=== PATIENT | male | born 1970 | race Caucasian/White ===

== ENCOUNTER 2019-07-11 07:42 | Inpatient (IN) ==
[2019-07-11 08:52] LABS: BASO# 0.01 X1000 (0.0-0.2); BASO% 0.1 % (0.0-0.8); EOS# 0.01 X1000 (0.0-0.7); EOS% 0.1 % (0.0-10.0); HEMATOCRIT 43.4 % (42.0-52.0); HEMOGLOBIN 13.9 g/dL (14.0-18.0); IMM GRAN# 0.02 X1000 (0.0-0.04); IMM GRAN% 0.3 % (0.0-0.5); LYMPH# 0.42 X1000 (1.2-3.4); LYMPH% 6.2 % (20.5-51.1); MCH 30.7 PG (27-31); MCV 95.8 FL (81-99); MONO# 0.67 X1000 (0.11-0.59); MONO% 9.9 % (1.7-9.3); MPV 10.4 FL (7.4-10.4); NEUT# 5.61 X1000 (1.4-6.5); NEUT% 83.4 % (42.2-75.2); PLT 303 X1000 (130-400); RBC 4.53 XMIL (4.7-6.1); RDW 12.4 % (11.5-14.5); WBC 6.74 X1000 (4.8-10.8)
--- NOTE | 2019-07-11 08:52 | Diag Imaging Result Doc PS360 ---
CHEST-1 VIEW - 07/11/2019 INDICATION: sepsis prot COMPARISON: 07/21/2017 FINDINGS: Lung volumes are low. The lungs are clear. Heart size is normal. No pneumothorax or pleural effusion. IMPRESSION: Negative exam. Electronically signed by Vazquez Juan 07/11/2019 8:50 AM
[2019-07-11] MEDS ORDERED: LEVAQUIN 750 MG/D5W 750 MG/150 ML IVPB IV ONE (08:53)
[2019-07-11 09:06] LABS: INR 1.46
[2019-07-11 09:07] LABS: PTT 38.7 Seconds (22.3-41.8)
[2019-07-11 09:10] LABS: AGAP 11; ALB/GLOB RATIO 1.5; ALKALINE PHOSPHATASE 97 U/L (32-122); BUN 14 mg/dL (8-22); CALCIUM 8.2 mg/dL (8.8-10.2); CHLORIDE 103 mmol/L (98-107); CK PROFILE 48 U/L (24-204); COSMO 279; CREATININE 0.8 mg/dL (0.7-1.2); ESTIMATED GFR > 60; GLUCOSE 143 mg/dL (70-104); GOT 33 U/L (10-34); GPT 36 U/L (10-44); POTASSIUM 3.9 mmol/L (3.5-5.1); SODIUM 138 mmol/L (136-145); TCO2 24 mmol/L (25-35); TOTAL BILIRUBIN 0.47 mg/dL (0.20-1.00); TOTAL PROTEIN 6.7 g/dL (6.3-8.3)
[2019-07-11] MEDS ORDERED: DUONEB (A & A) INH ONE (09:21)
[2019-07-11] MEDS ORDERED: TYLENOL PO ONE (09:50)
[2019-07-11] MEDS ORDERED: TAMIFLU PO ONE ×2 (10:17→10:47)
[2019-07-11] MEDS ORDERED: NS 1,000 ML IV ONE (10:41)
--- NOTE | 2019-07-11 12:10 | PROVIDER DOCUMENTATION ---
This chart was entered by Leonora West Scribe, acting as scribe for Booker Mcgee DO. HPI-Fever - General Chief Complaint: SEPSIS ALERT - D Stated Complaint: fever, ams Time Seen by Provider: 07/11/19 09:00 Source: patient, family (parents) Allergies/Adverse Reactions: Patient Allergies Allergy/AdvReac Type Severity Reaction Status Date / Time dalfampridine [From Ampyra] Allergy Seizures Verified 07/11/19 10:07 Home Medications: Home Medication List Medication Instructions Recorded Confirmed Last Taken Type Baclofen 20 mg PO DAILY 05/22/14 06/27/19 06/27/19 History Rivaroxaban [Xarelto] 1 tab PO DAILY 11/13/18 06/27/19 06/26/19 History Tamsulosin [Flomax] 0.4 mg PO DAILY 03/19/19 06/27/19 06/26/19 History - History of Present Illness-Fever Nature of Presenting Problem: 48yom presents to ED by EMS cc dizzy, fever, weakness, trouble standing, cough, headache and sore throat since this morning. Parents are at bedside and are pt caregivers and report pt has MS, low platelets, low white count and has weekly blood work at Dr. Black's office. Pt is on Xarelto 10mg qday. Pt is febrile, lethargic and unwell looking upon exam. Fever Severity/Quality: reports: greater than 102 F Onset/Duration: reports: this morning Timing: reports: still present Severity: reports: moderate Context: reports: decreased mental status, other (low platelets and low white count, MS) Recent Illness?: reports: none Cognitive Baseline: alert, oriented x3 Modifying Factors: improves with: nothing Associated Symptoms: reports: cough, dizziness, fatigue, fever/chills, headaches , sinus congestion/drainage, weakness Similar Symptoms Previously?: No Recently seen or treated by another doctor?: Yes (is seen weekly at Dr. Black's office for blood work) - Glascow Coma Score Best Eye Response ([place]): (4) open spontaneously Best Verbal Response ([place]): (5) oriented Best Motor Response ([place]): (6) obeys commands [place] Total: 15 Review of Systems - Adult - REVIEW OF SYSTEMS - ADULT Constitutional: reports: see HPI, chills, fever, fatique. denies: weight gain, weight loss Eyes: reports: no symptoms reported Ears, Nose, Mouth & Throat: reports: see HPI, sinus problem, throat pain. denies: ear pain Cardiovascular: reports: no symptoms reported Respiratory: reports: see HPI, cough. denies: shortness of breath, wheezing Gastrointestinal: reports: no symptoms reported Genitourinary: reports: no symptoms reported Musculoskeletal: reports: no symptoms reported Integumentary: reports: no symptoms reported Neurological: reports: see HPI, dizziness/vertigo, headache/migraines, loss of balance. denies: syncope Psychiatric: reports: no symptoms reported Endocrine: reports: no symptoms reported Hematologic/Lymphatic: reports: no symptoms reported Allergic/Immunologic: reports: no symptoms reported All Other Systems: Reviewed and Negative Past History - Adult - PAST MEDICAL HISTORY-ADULT Review of Records: reports: Nursing Assessment Review, Medications Reviewed, Social history reviewed & non-contributory. Major Childhood Illnesses: reports: denies history Cardiovascular: reports: denies history Respiratory: reports: denies history Gastrointestinal: reports: denies history Obstetrical/Gynecological: reports: denies history Genitourinary: reports: denies history Musculoskeletal: reports: denies history Neurological: reports: Multiple Sclerosis, Seizures/Epilepsy Endocrine/Immune: reports: anemia Other Conditions: reports: deaf/hard of hearing - PRIOR SURGERIES/PROCEDURES Surgical/Procedure History: reports: other (cochlear implant) - IMMUNIZATION STATUS Childhood Immunizations: See Nurse Assessment Flu Vaccine: See Nurse Assessment - FAMILY HISTORY Family History: reviewed, not pertinent - SOCIAL HISTORY Smoking: denies Physical Exam-General - PHYSICAL EXAM-ADULT Initial Vital Signs Reviewed: Yes - CONSTITUTIONAL General Appearance: alert, no apparent distress. negative: anxious, combative - EYES Eyes: PERRL/EOMI, pink conjunctivae. negative: photophobia - HEAD, EARS, NOSE, MOUTH & THROAT HENMT: normocephalic/atraumatic, moist mucous membranes, pharynx normal (uvula midline, no airway swelling), hearing deficit (pt has cochlear implant to right ear). negative: angioedema, tonsillar exudate - RESPIRATORY Respiratory: chest non-tender, no pleuratic chest pain, no respiratory distress, no accessory muscle use, rales (bilateral at bases with right greater than left), wheezing (expiratory at bases bilateral). negative: normal breath sounds (decreased), crackles, rhonchi, stridor - CARDIOVASCULAR Cardiovascular: normal peripheral pulses, regular rate, rhythm, no edema, no gallop, no JVD, tachycardia, systolic murmur (1-2/6 at the apex). negative: bradycardia - GASTROINTESTINAL (ABDOMEN) Abdominal Exam: normal bowel sounds, non tender, soft, no organomegaly, no pulsatile mass. negative: distended, guarding, rigid, rebound, tenderness - LYMPHATIC Lymphatic: no adenopathy. negative: enlargement, striations - MUSCULOSKELETAL Extremity: no calf tenderness, normal capillary refill, other (left lower leg is greater than right from a previous blood clot). negative: deformity - SKIN Integumentary: normal color, normal turgor, warm. negative: diaphoresis, jaundice, rash, swelling, tenderness - PSYCHIATRIC Psych/Mental Status: normal mood/affect, oriented x 3. negative: anxious, disheveled Progress - PLAN OF CARE/RESULTS Progress/Plan/Lab Results: Vital Signs - 8 hr 07/11/19 07:52 07/11/19 07:58 07/11/19 08:02 Temperature 104.5 F H Pulse Rate 135 H 134 H Respiratory Rate 25 H 12 27 H Blood Pressure 109/59 116/64 109/59 O2 Sat by Pulse Oximetry 89 L 89 L 89 L 07/11/19 08:38 07/11/19 09:02 07/11/19 09:32 Temperature Pulse Rate 131 H 132 H 132 H Respiratory Rate 19 19 21 Blood Pressure 106/61 96/55 102/49 O2 Sat by Pulse Oximetry 91 L 97 93 L 07/11/19 10:02 07/11/19 10:32 07/11/19 11:31 Temperature 101.9 F H Pulse Rate 127 H 137 H 136 H Respiratory Rate 19 19 22 Blood Pressure 96/63 94/61 O2 Sat by Pulse Oximetry 94 L 92 L 07/11/19 09:33 Influenza Screen - Final Nasopharyngeal 07/11/19 09:33 Group A Strep Rapid Antigen - Final Throat Laboratory Results - last 24 hr 07/11/19 07/11/19 07/11/19 08:37 08:37 08:37 WBC 6.74 RBC 4.53 L Hgb 13.9 L Hct 43.4 MCV 95.8 MCH 30.7 MCHC 32.0 L RDW Std Deviation 12.4 Plt Count 303 MPV 10.4 Immature Gran % (Auto) 0.3 Neut % (Auto) 83.4 H Lymph % (Auto) 6.2 L Glasscock % (Auto) 9.9 H Eos % (Auto) 0.1 Baso % (Auto) 0.1 Immature Gran # (Auto) 0.02 Neut # (Auto) 5.61 Lymph # (Auto) 0.42 L [place] # (Auto) 0.67 H Eos # (Auto) 0.01 Baso # (Auto) 0.01 PT 18.0 H INR 1.46 PTT (Actin FS) 38.7 Sodium 138 Potassium 3.9 Chloride 103 Carbon Dioxide 24 L Anion Gap 11 BUN 14 Creatinine 0.8 Estimated GFR/1.73 m2 > 60 BUN/Creatinine Ratio 18 Glucose 143 H Calculated Osmolality 279 Calcium 8.2 L Total Bilirubin 0.47 AST 33 ALT 36 Alkaline Phosphatase 97 Creatine Kinase 48 Troponin T High Sens Total Protein 6.7 Albumin 4.0 Globulin 2.7 Albumin/Globulin Ratio 1.5 Plasma Lactate 07/11/19 07/11/19 08:37 08:37 WBC RBC Hgb Hct MCV MCH MCHC RDW Std Deviation Plt Count MPV Immature Gran % (Auto) Neut % (Auto) Lymph % (Auto) Glasscock % (Auto) Eos % (Auto) Baso % (Auto) Immature Gran # (Auto) Neut # (Auto) Lymph # (Auto) Glasscock # (Auto) Eos # (Auto) Baso # (Auto) PT INR PTT (Actin FS) Sodium Potassium Chloride Carbon Dioxide Anion Gap BUN Creatinine Estimated GFR/1.73 m2 BUN/Creatinine Ratio Glucose Calculated Osmolality Calcium Total Bilirubin AST ALT Alkaline Phosphatase Creatine Kinase Troponin T High Sens 13 Total Protein Albumin Globulin Albumin/Globulin Ratio Plasma Lactate 1.1 Orders Category Date Time Status Cardiac Monitoring DIRECTED Care 07/11/19 08:04 Active IV Insertion ORDERED Care 07/11/19 08:04 Completed Notify MD of + Sepsis Screen NOW Care 07/11/19 08:04 Active Notify Physician As Ordered Care 07/11/19 08:04 Active CHEST-1 VIEW [RAD] Stat Exams 07/11/19 08:04 Completed BLOOD CULTURE [BLDCUL] Stat Lab 07/11/19 09:33 Results CBC WITH DIFF [HEME] Stat Lab 07/11/19 08:37 Completed CK PROFILE [SP CHEM] Stat Lab 07/11/19 08:37 Completed COMPREHENSIVE METABOLIC PANEL [CHEM] Stat Lab 07/11/19 08:37 Completed DIRECT STREP Stat Lab 07/11/19 09:33 Completed INFLUENZA SCREEN A/B Stat Lab 07/11/19 09:33 Completed LACTATE, PLASMA [CHEM] Lab 07/11/19 08:37 Completed LACTATE, PLASMA [CHEM] Lab 07/11/19 11:15 Uncollected LACTATE, PLASMA [CHEM] Lab 07/11/19 14:15 Uncollected PROTIME WITH INR [COAG] Stat Lab 07/11/19 08:37 Completed PTT [COAG] Stat Lab 07/11/19 08:37 Completed TROPONIN T HIGH SENSITIVITY Stat Lab 07/11/19 08:37 Completed URINALYSIS W/POSS RFLX CULT [URINALYSIS] Stat Lab 07/11/19 08:04 Uncollected 0.9% Sodium Chloride Inj [Ns] 1,000 ml Med 07/11/19 10:41 Discontinued IV 999 mls/hr Acetaminophen [Tylenol] Med 07/11/19 09:50 Discontinued 1,000 mg PO NOW ONE Albuterol 2.5MG/Ipratrop 0.5MG [Duoneb (A & A)] Med 07/11/19 09:21 Discontinued 3 ml INH NOW ONE Levofloxacin 750 mg/D5w [Levaquin 750 mg/D5w] Med 07/11/19 08:53 Discontinued 750 mg in 150 ml IV NOW Oseltamivir [Tamiflu] Med 07/11/19 10:17 Discontinued 75 mg PO NOW ONE Oseltamivir [Tamiflu] Med 07/11/19 10:47 Discontinued 75 mg PO NOW ONE Aerosol Treatments Routine Oth 07/11/19 09:21 Completed Aerosol Treatments Stat Oth 07/11/19 09:21 Completed Oxygen Device Stat Oth 07/11/19 08:04 Completed Transfer/Admit Order [TRANSFER] Routine Transfer 07/11/19 11:38 Ordered Result Diagrams: 07/11/19 08:37 07/11/19 08:37 - REASSESSMENT Reassessment #1 Status: improving (discussed labs/xrays with patient in depth discussed -case with dr black and PIPE STEM REPAIRER for Hospitalist group) - XRAY 1 XRAY: Bilateral XRAY Study: Chest Impression: See EMR Report (IMPRESSION: Negative exam. Electronically signed by Vazquez Juan 07/11/2019 8:50 AM) - CONSULTS/PCP/HOSPITALIST Notification #1 *Consult/PCP/Hospitalist*: Dr. Black paged @1120;returned @1125 Time Discussed: 11:25 Consult Disposition: other (admit to hospitalist) #2 Consult: Nicky/PIPE STEM REPAIRER paged@[phone];returned@ 1135 Time Discussed: 11:36 Consult Disposition: Admit (accepted pt to Dr. Betancourt) Departure - Departure Date of Disposition Decision: 07/11/19 Time of Disposition Decision: 11:26 DIAGNOSIS: Hypoxemia, Flu, Pneumonitis, Febrile neutropenia Disposition: ADMITTED INPATIENT 09 Certified Medical Emergency: Emergent Condition: Stable Referrals and Follow-Ups: None,PCP [Primary Care Provider] - - Critical Care Note This patient required my direct & personal management of CC.: Yes Total Time (mins): 60 Critical Care Statement: This patient required my direct personal management to treat or rule out processes, the absence of which, could potentiallly result in sudden, clinically significant life or limb threatening deterioration. Attestation - Physician/ DAY[place] Attestation Patient care was provided by Advanced Practice Provider:: No The physician spent face to face time with patient:: Yes Advanced Practice Provider documentation review:: Supervising physician onsite and consulted in the evaluation and care of this patient. The physician did have a face to face encounter with the patient. This chart was documented by the indicated scribe, (Leonora West Scribe) and accurately reflects the services I performed and decisions made by me, Booker Mcgee DO, as attested by the provider's signature.
[2019-07-11] MEDS ORDERED: ZOFRAN PO PRN (12:28)
[2019-07-11] MEDS ORDERED: TYLENOL PO PRN ×2 (12:28→13:35)
[2019-07-11] MEDS ORDERED: ZOFRAN IV PRN (13:35)
--- NOTE | 2019-07-11 15:27 | HISTORY AND PHYSICAL ---
PRIMARY CARE PHYSICIAN: None. LEARNING SUPPORT ASSISTANT: Leanne Beltran MD NEUROLOGIST: Gómez Sanders MD CHIEF COMPLAINT: Fever, malaise, cough, headache, sore throat, weakness over the past day that has progressively worsened. HISTORY OF PRESENTING ILLNESS: This is a 48-year-old male who presents to [facility] via EMS with complaints of dizziness, fever, weakness, cough, headache and sore throat that began approximately a day ago and has progressively worsened. When he arrived to the emergency room, he had a temperature of 104.5 degrees, pulse was 135. He was saturating 89% on room air. We placed him on 2 L via nasal cannula and he is now currently saturating 94% to 97%. His laboratory data was fairly unremarkable except his Influenza A was positive. His chest x-ray showed a negative exam. His white blood cell count was 6.73, so he will be admitted for further evaluation and treatment. PAST MEDICAL HISTORY: Multiple sclerosis, thrombocytopenia, seizures, leukopenia, and has a right cochlear implant hearing aid. PAST SURGICAL HISTORY: Right cochlear implant. FAMILY HISTORY: Reviewed and noncontributory. SOCIAL HISTORY: Currently lives with family. Denies any tobacco, alcohol or illicit drug use. ALLERGIES: Dalfampridine. HOME MEDICATIONS: A current list will need to be obtained, reconciled, reviewed and restarted as appropriate. Will place an order for nursing to update and confirm home medications. LABORATORY DATA: White blood cell count of 6.74, hemoglobin 13.9, hematocrit 43.4, and platelets 303,000. PT 18 and INR 1.46. Sodium 138, potassium 3.9, chloride 103, CO2 24, BUN of 14, creatinine 0.8, glucose 143. Plasma lactate was 1.1. Chest x-ray showed a negative exam. His throat culture is pending. Group A strep was negative. Influenza A was positive. Influenza B was negative. Blood cultures x2 are pending. REVIEW OF SYSTEMS: He was positive for a subjective fever, denied any chills or blurred vision. He did have some dizziness, cough, headache and sore throat. Denied any abdominal pain, constipation, diarrhea, burning or hurting with urination. PHYSICAL EXAMINATION: VITAL SIGNS: On arrival he had a temperature of 104.5 degrees, pulse 135, respirations 25, blood pressure 109/59, saturating 89% on room air. Temperature is now down to 101.9, saturating 94% to 97% on 2 L. GENERAL: This is a 48-year-old male who is lying in the bed and answers questions appropriately. HEENT: Normocephalic, atraumatic. Normal ENT inspection. It is noted that he has a right cochlear implant hearing aid. EYES: Pupils are equal, round, reactive to light and accommodation. Extraocular movements are intact. NECK: Normal inspection. Normal range of motion. LUNGS: Clear to auscultation bilaterally with equal lung expansion and chest wall movement. HEART: Regular rate and rhythm. No murmurs, rubs, or gallops. ABDOMEN: Soft, nontender, nondistended. Bowel sounds are present x4 quadrants. MUSCULOSKELETAL: He had 5/5 strength x4 extremities. NEUROLOGICAL: The cranial nerves 2-12 appear grossly intact. ASSESSMENT: 1. Fever. 2. Influenza A positive. 3. Acute respiratory failure. 4. History of thrombocytopenia and leukopenia. PLAN: He will be admitted to the medical unit. Placed on a regular diet. Place on droplet precautions. Placed on Tamiflu 75 mg p.o. b.i.d., normal saline at 75 mL/h. Oxygen per protocol. DuoNeb q.4 hours. Tylenol 650 p.o. q.6 hours p.r.n. for fever, pain, Zofran 4 mg IV q.4 hours p.r.n. We will recheck a CBC BMP in the a.m. We still need to update and confirm home medications. Dictated by FELTON Correa for Jamir Betancourt MD cc: FELTON Correa MD
[2019-07-11] MEDS ORDERED: DUONEB (A & A) INH SCH (15:30)
[2019-07-11] MEDS: DUONEB (A & A) INH SCH ×3 (16:23→23:37)
[2019-07-11 17:03] LABS: URINE SOURCE CLEAN CATCH
[2019-07-11 17:10] LABS: BILIRUBIN URINE SMALL (NEGATIVE); BLOOD URINE TRACE (NEGATIVE); COLOR YELLOW; GLUCOSE URINE NEGATIVE (NEGATIVE); KETONE URINE TRACE mg/dL (NEGATIVE); LEUKOCYTES URINE NEGATIVE (NEGATIVE); NITRITE URINE NEGATIVE (NEGATIVE); PROTEIN URINE 70 mg/dL (NEGATIVE); SP GRAVITY URINE 1.036; TURBIDITY URINE CLEAR (CLEAR); UROBILINOGEN URINE 3 mg/dL (NORMAL)
[2019-07-11 17:19] LABS: UR EPITHELIAL CELLS <10 /HPF (<10); URINE BACTERIA NEGATIVE /HPF; URINE RBC <10 /HPF (<10); URINE WBC <10 /HPF (<10)
[2019-07-11 17:35] LABS: URINE CASTS NONE SEEN; URINE CRYSTALS NONE SEEN; URINE YEAST NONE SEEN
[2019-07-11] MEDS: ZYVOX 600 MG/D5W 600 MG/300 ML IVPB IV SCH (17:41)
[2019-07-11] MEDS: MAXIPIME 2 GM/NS 2 GM/100 ML IVPB IV SCH (17:41)
[2019-07-11] MEDS: NS 1,000 ML IV SCH (17:41)
--- NOTE | 2019-07-11 21:10 | HISTORY AND PHYSICAL ---
ADDENDUM: I have seen and examined Mr. Hanley today. The mom and dad were both at the bedside at the time of the encounter. Mr. Hanley presented to the emergency room because of a fever since this morning and unable to walk. He was also remarkably hypoxemic on presentation. PHYSICAL EXAMINATION: VITAL SIGNS: His vitals showed the temperature was 104.5 degrees, respiratory rate of 25, and pulse rate was 135. Patient was saturating 89% on room air. GENERAL: Mr. Hanley is a 48-year-old elderly male. He is in bed in no distress. HEENT: Mucosa is pink and moist. CHEST: Air entry was bilaterally reduced. I did not hear crackles or rhonchi. CARDIOVASCULAR: Tachycardic, but no murmur. ABDOMEN: Soft. EXTREMITIES: No pedal edema. Patient has a cochlear implant. LABORATORY DATA: Has been reviewed. For the most part is unremarkable. ASSESSMENT: 1. Sepsis with hypoxemia, presumably due to pneumonia. However, the chest x-ray was unremarkable. The patient's flu serology is positive and it is very possible that he has a viral pneumonitis. The patient has been started on Tamiflu. We have done blood cultures. We will cover him empirically with antibiotics until we have the blood cultures back. 2. History of multiple sclerosis. 3. Chronic thrombocytopenia. The patient is on weekly thrombopoietin with Dr. Beltran. We will notify her. 4. Hearing impairment, status post cochlear implant noted. Please refer to the details of the History and Physical that has been dictated by the DIRECTOR OF STRATEGIC MARKETING in the chart. I have discussed the plan with her. I have also discussed my findings and plan with the patient and his parents. cc: Jamir Betancourt MD
[2019-07-11] MEDS: TAMIFLU PO SCH (22:24)
[2019-07-12] MEDS: DUONEB (A & A) INH SCH ×6 (03:26→23:02)
[2019-07-12] MEDS: NS 1,000 ML IV SCH ×2 (05:20→16:23)
[2019-07-12] MEDS: ZYVOX 600 MG/D5W 600 MG/300 ML IVPB IV SCH ×2 (05:20→17:46)
[2019-07-12 07:44] LABS: BASO# 0.01 X1000 (0.0-0.2); BASO% 0.1 % (0.0-0.8); HEMATOCRIT 42.8 % (42.0-52.0); HEMOGLOBIN 13.3 g/dL (14.0-18.0); IMM GRAN# 0.02 X1000 (0.0-0.04); IMM GRAN% 0.2 % (0.0-0.5); LYMPH# 0.85 X1000 (1.2-3.4); LYMPH% 8.8 % (20.5-51.1); MCH 30.2 PG (27-31); MCHC 31.1 g/dL (33-37); MCV 97.3 FL (81-99); MONO# 0.56 X1000 (0.11-0.59); MONO% 5.8 % (1.7-9.3); MPV 10.2 FL (7.4-10.4); NEUT% 85.1 % (42.2-75.2); PLT 471 X1000 (130-400); RDW 12.5 % (11.5-14.5); WBC 9.64 X1000 (4.8-10.8)
[2019-07-12 07:59] LABS: BANDS 30 % (0-1); LYMPHS 6 % (21-51); MONO 2 % (1-9); SEGS 60 % (42-75)
[2019-07-12 08:08] LABS: AGAP 11; BUN 14 mg/dL (8-22); CALCIUM 8.7 mg/dL (8.8-10.2); CHLORIDE 105 mmol/L (98-107); COSMO 281; CREATININE 0.9 mg/dL (0.7-1.2); ESTIMATED GFR > 60; GLUCOSE 119 mg/dL (70-104); SODIUM 140 mmol/L (136-145); TCO2 24 mmol/L (25-35)
[2019-07-12] MEDS: TAMIFLU PO SCH ×2 (08:51→20:44)
[2019-07-12] MEDS: MAXIPIME 2 GM/NS 2 GM/100 ML IVPB IV SCH ×2 (08:51→20:44)
[2019-07-12] MEDS ORDERED: COMPAZINE IV PRN (09:56)
[2019-07-12] MEDS ORDERED: COMPAZINE IV ONE (09:56)
[2019-07-12] MEDS ORDERED: XARELTO PO ONE (17:49)
--- NOTE | 2019-07-12 17:57 | PROGRESS NOTE ---
DATE: 07/12/2019 SUBJECTIVE: This morning, Mr. Hanley refers to be doing a lot better. Slightly feeling a little stronger than yesterday. He did have a mild temperature of 100.3 degrees early this morning. OBJECTIVE: Current vital signs: Blood pressure is 106/60, pulse of 114, respirations 14, temperature 98.9 degrees. General: Mr. Hanley is a 48-year-old, gentleman. He is in bed. He is not in any cardiopulmonary distress. HEENT: Mucosa is pink and moist. Anicteric, acyanotic. Neck: Supple. No JVD. There is a cochlear implant on the right temporal scalp. Respiratory System: There is good air entry bilaterally. No crepitations. No rhonchi. Cardiovascular: Regular rate and rhythm. Minimally tachycardic, but no murmurs. Gastrointestinal: Abdomen is soft. Bowel sounds present. Extremities: No pedal edema. Central nervous system: Awake, alert, did not have any focal deficit. He was able to communicate with me once his cochlear implant was put back on. LABORATORY DATA: WBC is 9.64, hemoglobin is 13.3, platelet count of 471,000. Chemistry was also reviewed. Patient has 30% of bands on his peripheral smear. Chemistry is completely unremarkable. So far, blood cultures are still pending. The patient's influenza A was positive. IMAGING STUDIES: Done yesterday, for most part were unremarkable. ASSESSMENT: 1. Sepsis, presumably from viral syndrome. Seems to be improving. 2. Acute hypoxemic respiratory failure. Improved. The patient continues to be on mild supplemental oxygen. Chest x-ray has been unremarkable. The patient is being treated for presumed influenza, pneumonitis, versus a bacterial pneumonia. We will get a chest x-ray tomorrow morning to look at the lung parenchyma again. 3. History of multiple sclerosis. Noted. 4. Chronic thrombocytopenia. Patient is on weekly thrombopoietin with Dr. Beltran. I have notified her. 5. Hearing impairment. The patient is status post cochlear implant. This is noted. 6. Influenza A positive. Patient is on Tamiflu for a total of 5 days. PLAN: In general, I think Mr. Hanley is doing a lot better. He had a mild temperature elevation early this morning, but clinically he looks more stable than yesterday. We are going to continue with the Tamiflu, IV fluids, antibiotics until we have the blood culture report. I have discussed my plan with the father and the patient today, and both voiced understanding. cc: Jamir Betancourt MD
--- NOTE | 2019-07-12 20:58 | HEMO/ONC CONSULTATION ---
DATE: 07/12/2019 HISTORY OF PRESENT ILLNESS/PLAN: The patient was seen as a courtesy consult for admission for flu, fever, and generalized weakness. The patient is known to me for drug- induced hemolytic anemia, neutropenia, ITP. He normally receives Nplate and Granix weekly on Fridays. His counts are up because of his acute infection and he has not required any injections today. We will see him back in 1 week in the office as previously scheduled. He is clinically improving and can be discharged when deemed adequate functional status per the hospitalist team. cc: Leanne Beltran MD MTDD
[2019-07-13] MEDS: DUONEB (A & A) INH SCH ×2 (03:48→08:49)
[2019-07-13] MEDS: ZYVOX 600 MG/D5W 600 MG/300 ML IVPB IV SCH (05:07)
[2019-07-13] MEDS: NS 1,000 ML IV SCH ×2 (06:05→09:07)
[2019-07-13] MEDS ORDERED: XARELTO PO SCH (09:00)
[2019-07-13] MEDS ORDERED: FLOMAX PO SCH (09:00)
[2019-07-13] MEDS ORDERED: LIORESAL PO SCH (09:00)
[2019-07-13] MEDS: TAMIFLU PO SCH (09:07)
[2019-07-13] MEDS: MAXIPIME 2 GM/NS 2 GM/100 ML IVPB IV SCH (09:08)
[2019-07-13 11:56] VITALS: BP 113/59
--- NOTE | 2019-07-13 14:24 | PROGRESS NOTE ---
DATE: 07/13/2019 SUBJECTIVE: This morning, Mr. Hanley refers to be doing fairly okay. No new complaints. Mother was at the bedside. The patient had just gone to the restroom and finished using it and was coming back. OBJECTIVE: Vital signs: Blood pressure is 154/84, pulse of 104, respirations 20, temperature is 97.7 degrees. General: Mr. Hanley is a 48-year-old gentleman. He is sitting at the edge of the bed in no distress. HEENT: Mucosa is pink and moist. Anicteric. Acyanotic. Neck: Supple. Chest: Good air entry bilaterally. There was no crepitations, no rhonchi. Cardiovascular: Regular rate and rhythm. No murmurs, no rubs, no gallops. Gastrointestinal: Abdomen is soft. Bowel sounds present. There is no hepatosplenomegaly. Extremities: No pedal edema. Central nervous system: Patient is awake, alert. Follows basic commands. The patient has a cochlear implant on the right side. LABORATORY DATA: None for today. We are still waiting on the blood cultures. ASSESSMENT: 1. Sepsis secondary to viral syndrome. 2. Acute hypoxemic respiratory failure, improved. The patient is currently off supplemental oxygen. 3. Presumed influenza pneumonitis. 4. History of multiple sclerosis. 5. Chronic thrombocytopenia. 6. Influenza A-positive. 7. Hearing impairment. The patient has a cochlear implant. PLAN: In general, I think Mr. Hanley is doing well. Denies any new complaints. Blood cultures are still pending. He is not showing any more respiratory symptoms, so we are going to discontinue the Zyvox. Will be pending the culture to discontinue hopefully the cefepime as well. I think once we have the ultimate blood culture report, we can potentially discharge Mr. Hanley today if the result comes in. cc: Jamir Betancourt MD
[2019-07-13] MEDS ORDERED: MAXIPIME 1 GM in NS 50 ML IV SCH (21:00)
--- NOTE | 2019-07-13 21:46 | DISCHARGE SUMMARY ---
ADMISSION DATE: 07/12/2019 DISCHARGE DATE: 07/13/2019 DISPOSITION: Home. FOLLOWUP: 1. Patient PCP. 2. Dr. Leanne Beltran. CONSULTATION: Dr. Beltran was consulted. INVASIVE PROCEDURES: None. IMAGING STUDIES OF SIGNIFICANT: Chest x-ray was unremarkable. ADMISSION DIAGNOSIS: 1. Fever. Influenza. 1. Acute respiratory failure. 2. History of thrombocytopenia and leukopenia. DIAGNOSIS AT THE TIME OF DISCHARGE: 1. Sepsis secondary to viral syndrome. 2. Acute hypoxemic respiratory failure, improved. 3. Influenza A infection with pneumonitis improved. 4. History of multiple sclerosis. 5. Hearing impairment. Patient has cochlear implant. 6. History of drug-induced hemolytic anemia, neutropenia and idiopathic thrombocytopenic purpura. Patient follows up with Dr. Beltran. DISCHARGE MEDICATIONS: 1. Baclofen 20 mg p.o. daily. 2. Xarelto 10 mg p.o. daily. 3. Flomax 0.4 mg p.o. daily. 4. Tamiflu 75 mg p.o. b.i.d. PRESENTING COMPLAINT: Fever, malaise, cough, headache, sore throat, generalized weakness. HISTORY OF PRESENT COMPLAINT: Mr. Hanley 48-year-old gentleman who has history of multiple sclerosis, chronic thrombocytopenia, status post cochlear implant, came to emergency room with his parents because of generalized weakness, cough, headache. On presentation he was found to be very febrile with a temperature of 104.5 degrees. He was also hypoxemic, saturating 89% on room air. Initial chest x-ray did not show any pneumonia. He was tested for the flu, he became flu positive. He was admitted for further medical care. HOSPITAL COURSE: Mr. Hanley was admitted to the medical floor, fluid resuscitated, because of his systemic symptoms cultures were done and he was empirically started on broad- spectrum IV antibiotics and Tamiflu for the flu. During the hospital course he showed remarkable improvement. He became afebrile. All the systemic symptoms got resolved. His blood cultures came back 2/2 negative, antibiotics were discontinue and he has been advised to continue with the Tamiflu for a total of 5 days. This morning Mr. Hanley refers to be feeling a whole lot better. Mother was at the bedside at the time of the encounter. Initially the culture report was not there so I told them would wait on that. Later this afternoon we got the results being negative so we think he is stable to be discharged. All the discharge instructions discussed with him and with the mother. Both of them voiced understanding. TIME SPENT: 33 minutes. cc: MD MARTIN Cheng
== END 2019-07-13 12:27 | disposition home or self-care (01) | DRG 871 ==
LOC: SUPCPDRO → ED 07:42 → 3N 07:42
PROVIDERS: ATTEND Internal Medicine